=== PATIENT | female | born 1965 ===

== ENCOUNTER 2017-03-24 22:35 | Emergency (ER) | payer OTHER ==
[2017-03-25] MEDS ORDERED: Sodium Chloride 0.9% 1,000 ML IV STA (00:12)
[2017-03-25 00:25] LABS: RBC URINE 2 /hpf (0-3); URINE BILIRUBIN NEGATIVE (NEGATIVE); URINE BLOOD NEGATIVE (NEGATIVE); URINE COLOR YELLOW (YELLOW); URINE GLUCOSE (UA) NEG (Normal); URINE KETONE NEGATIVE (NEGATIVE); URINE LEUKOCYTE ESTERASE TRACE Leu/uL (Negative); URINE PROTEIN NEGATIVE (NEGATIVE); URINE UROBILINOGEN 0.2-1.0 mg/dL (0.2-1.0); WBC URINE 4 /hpf (0-5)
[2017-03-25 00:53] LABS: BASO % 0.4 % (0.0-2.0); EOS % 0.3 % (0.0-4.0); HEMATOCRIT 38.4 % (34.0-47.0); LYMPH # 0.4 K/uL (1.0-4.3); LYMPH % 4.2 % (20.0-40.0); MEAN CORPUSCULAR HEMOGLOBIN 30.6 pg (27.0-31.0); MEAN CORPUSCULAR HGB CONC 33.6 g/dL (33.0-37.0); MEAN PLATELET VOLUME 9.3 fl (7.2-11.7); MONO # 0.1 K/uL (0.0-0.8); MONO % 0.7 % (0.0-10.0); NEUT # 9.8 K/uL (1.8-7.0); NEUT % 94.4 % (50.0-75.0); PLATELET COUNT 255 K/uL (130-400); RED CELL DISTRIBUTION WIDTH 13.2 % (11.5-14.5); WHITE BLOOD COUNT 10.3 K/uL (4.8-10.8)
--- NOTE | 2017-03-25 00:54 | ED PDOC ---
HPI: Female Pain Time Seen by Provider: 03/24/17 23:38 Chief Complaint (Nursing): Abdominal Pain Chief Complaint (Provider): Urinary Symptoms History Per: Patient History/Exam Limitations: no limitations Current Symptoms Are (Timing): Still Present Quality Of Discomfort: "Pain" Associated Symptoms: Urinary Symptoms Additional Complaint(s): 51 year old female presents to ED with complaints of urinary problems and has no past medical history. (+) chills, left sided back pain, suprapubic pain, body aches, foul smelling urine, nausea, diarrhea, and headaches. (-) vomiting. Patient denies taking any medications but notes that she had similar problems x6 months ago and was prescribed a course of antibiotics that resolved her symptoms. Of note, patient is employed at [employer] at [place]. Confirms that she has an appointment with her PCP x2 days from now. PCP: Dr. Shields Past Medical History Reviewed: Historical Data, Nursing Documentation, Vital Signs Vital Signs: Last Vital Signs Temp 98.8 F 03/24/17 22:50 Pulse 78 03/24/17 22:50 Resp 18 03/24/17 22:50 BP 128/59 L 03/24/17 22:50 Pulse Ox 99 03/24/17 22:50 - Medical History PMH: No Chronic Diseases Denies: HIV, Chronic Kidney Disease - Surgical History Surgical History: No Surg Hx - Family History Family History: States: No Known Family Hx - Living Arrangements Living Arrangements: With Family - Home Medications Home Medications: Ambulatory Orders Medication Instructions Recorded Fluticasone Nasal [Flonase] 1 spr ERIKA Q12 PRN 05/07/16 Losartan/Hydrochlorothiazide 1 tab PO DAILY 05/07/16 [Losartan-Hctz 50-12.5 mg Tab] Amoxicillin/Clavulanate [Augmentin 1 tab PO Q12 #20 tab 05/09/16 875 MG-125 MG] Clindamycin [Cleocin] 300 mg PO Q8 #9 cap 05/09/16 Ibuprofen [Motrin Tab] 600 mg PO Q6 PRN #0 tab 05/09/16 Lactobacillus Acidophilus [Bacid 1 cap PO BID #20 cap 05/09/16 Acidophilus] - Allergies Allergies/Adverse Reactions: Allergies Allergy/AdvReac Type Severity Reaction Status Date / Time No Known Allergies Allergy Verified 05/06/16 17:07 Review of Systems ROS Statement: Except As Marked, All Systems Reviewed And Found Negative Constitutional: Positive for: Fever, Other ((+) body aches) Gastrointestinal: Positive for: Nausea, Diarrhea. Negative for: Vomiting Genitourinary Female: Positive for: Other ((+) foul smelling order) Musculoskeletal: Positive for: Back Pain Neurological: Positive for: Headache Physical Exam - Reviewed Nursing Documentation Reviewed: Yes Vital Signs Reviewed: Yes - Physical Exam Appears: Positive for: Uncomfortable Skin: Positive for: Normal Color, Warm, Dry ENT: Positive for: Normal ENT Inspection Neck: Positive for: Normal, Painless ROM, Supple Cardiovascular/Chest: Positive for: Regular Rate, Rhythm. Negative for: Murmur Respiratory: Positive for: Normal Breath Sounds. Negative for: Respiratory Distress Gastrointestinal/Abdominal: Positive for: Soft, Tenderness ((+) suprapubic tenderness. (-) epigastric or Right upper quadrant Tenderness) Back: Positive for: L CVA Tenderness Extremity: Positive for: Normal ROM Neurologic/Psych: Positive for: Alert, Oriented. Negative for: Motor/Sensory Deficits - Laboratory Results Result Diagrams: 03/25/17 00:40 03/25/17 00:40 - ECG O2 Sat by Pulse Oximetry: 99 (RA) Pulse Ox Interpretation: Normal Medical Decision Making Medical Decision Makin Initial impression: UTI DDx: pyelonephritis, renal stones, enterocolitis Initial plan: * CT A/P * Labs * UDip * NS IV * Toradol 30mg IVP * Zofran Inj 4mg IV * BCx * UCx * UA * Re-eval 0153 CT FINDINGS: Lower thorax: There is minimal bibasilar atelectasis. ABDOMEN: Liver: The liver is within normal limits for this noncontrast study. Gallbladder and bile ducts: The gallbladder is mildly distended. No calcified stones. No ductal dilation. Pancreas: Unremarkable. No ductal dilation. Spleen: Unremarkable. No splenomegaly. Adrenals: Unremarkable. No mass. Kidneys and ureters: Unremarkable. No obstructing stones. No hydronephrosis. There are benign phleboliths in the pelvis. Stomach and bowel: Unremarkable. No obstruction. No mucosal thickening. Appendix: No findings to suggest acute appendicitis. Normal appendix. PELVIS: Bladder: Unremarkable. No stones. Reproductive: Unremarkable as visualized. ABDOMEN and PELVIS: Intraperitoneal space: Unremarkable. No free air. No significant fluid collection. Bones/joints: No acute fracture. No dislocation. Soft tissues: Unremarkable. Vasculature: Unremarkable. No abdominal aortic aneurysm. Lymph nodes: Unremarkable. No enlarged lymph nodes. IMPRESSION: Mildly distended gallbladder. Correlation with laboratory values is recommended. If clinically warranted RIGHT upper quadrant ultrasound could be obtained. No nephrolithiasis or obstructive uropathy. 0300 * Rocephin 1gm IVPB * Tylenol 650mg PO * Re-eval On February 2016, patient had US: (-) GALLSTONES Scribe Attestation: Documented by Abi Newell acting as a scribe for Ezequiel Huffman MD. Scribe Attestation: All medical record entries made by the Scribe were at my direction and personally dictated by me. I have reviewed the chart and agree that the record accurately reflects my personal performance of the history, physical exam, medical decision making, and the department course for this patient. I have also personally directed, reviewed, and agree with the discharge instructions and disposition. Disposition - Clinical Impression Clinical Impression: UTI (urinary tract infection), Diarrhea - Patient ED Disposition Is Patient to be Admitted: No Doctor Will See Patient In The: Office Counseled Patient/Family Regarding: Studies Performed, Diagnosis, Need For Followup - Disposition Referrals: Guerline Lopes [Other] Disposition: Routine/Home Disposition Time: 04:49 Condition: GOOD Additional Instructions: take your medications as instructed. Return for worsening. Follow up with your PCP in 2-3 days. Instructions: Urinary Tract Infection in Women (DC), Back Pain (ED) Forms: [employer] (Irish) Print Language: TAMAZIGHT
[2017-03-25 01:09] LABS: BLOOD UREA NITROGEN 17 mg/dl (7-17); CALCIUM 9.3 mg/dL (8.4-10.2); CARBON DIOXIDE 28 mmol/L (22-30); CHLORIDE 104 mmol/L (98-107); GFR AFRICAN-AMERICAN > 60; GLUCOSE,RANDOM 97 mg/dL (65-105); POTASSIUM 4.1 MMOL/L (3.6-5.0); SODIUM 143 mmol/l (132-148)
--- NOTE | 2017-03-25 01:54 | CT ---
EXAM: CT Abdomen and Pelvis Without Intravenous Contrast CLINICAL HISTORY: 51 years old, female; Pain; Abdominal pain; Generalized; Additional info: Left flank pain TECHNIQUE: Axial computed tomography images of the abdomen and pelvis without intravenous contrast. All CT scans at this facility use one or more dose reduction techniques, viz.: automated exposure control; ma/kV adjustment per patient size (including targeted exams where dose is matched to indication; i.e. head); or iterative reconstruction technique. COMPARISON: No relevant prior studies available. FINDINGS: Lower thorax: There is minimal bibasilar atelectasis. ABDOMEN: Liver: The liver is within normal limits for this noncontrast study. Gallbladder and bile ducts: The gallbladder is mildly distended. No calcified stones. No ductal dilation. Pancreas: Unremarkable. No ductal dilation. Spleen: Unremarkable. No splenomegaly. Adrenals: Unremarkable. No mass. Kidneys and ureters: Unremarkable. No obstructing stones. No hydronephrosis. There are benign phleboliths in the pelvis. Stomach and bowel: Unremarkable. No obstruction. No mucosal thickening. Appendix: No findings to suggest acute appendicitis. Normal appendix. PELVIS: Bladder: Unremarkable. No stones. Reproductive: Unremarkable as visualized. ABDOMEN and PELVIS: Intraperitoneal space: Unremarkable. No free air. No significant fluid collection. Bones/joints: No acute fracture. No dislocation. Soft tissues: Unremarkable. Vasculature: Unremarkable. No abdominal aortic aneurysm. Lymph nodes: Unremarkable. No enlarged lymph nodes. IMPRESSION: Mildly distended gallbladder. Correlation with laboratory values is recommended. If clinically warranted RIGHT upper quadrant ultrasound could be obtained. No nephrolithiasis or obstructive uropathy.
[2017-03-25 02:30] LABS: EOSINOPHIL 1 % (0-7); NEUTROPHIL 88 % (42-75); STOMATOCYTES MODERATE; TOTAL CELLS COUNTED 100
[2017-03-25 02:34] LABS: LARGE PLATELETS PRESENT
[2017-03-25] MEDS ORDERED: cefTRIAXone IV 1 gm in Dextros 50 ML IVPB ONE (03:38)
[2017-03-25 03:40] LABS: ALB/GLOB RATIO 1.2 (1.0-2.1); BILIRUBIN,TOTAL 0.3 mg/dl (0.2-1.3); TOTAL PROTEIN 7.5 G/DL (6.3-8.2)
[2017-03-25 05:09] VITALS: BP 122/68; PULSE 74; RESP 16; TEMP 98.3; O2SAT 98
== END 2017-03-25 05:10 | disposition home or self-care (01) ==
LOC: H.ER 22:35
DX: N39.0 Urinary tract infection, site not specified (principal); R51 Headache; R19.7 Diarrhea, unspecified
CPT/HCPCS: 74176; 80048; 80076; 81003; 83690; 85025; 87040; 87086; 96361; 96365; 96375; 99283; J0696; J1885; J2405; J7040

== ENCOUNTER 2017-05-04 17:45 | Emergency (ER) | payer BC ==
[2017-05-04 17:54] VITALS: RESP 16; TEMP 97.9; O2SAT 100
[2017-05-04] MEDS ORDERED: Sodium Chloride 0.9% 1,000 ML IV STA (18:43)
--- NOTE | 2017-05-04 18:57 | ED PDOC ---
HPI: General Adult Time Seen by Provider: 05/04/17 18:09 Chief Complaint (Nursing): Dizziness/Lightheaded History Per: Patient Additional Complaint(s): Pt. states earlier today at work at approximately 1200 today she developed a R sided gradual onset headache. Pt. states headache has progressively worsened and today at approximately 1630 she began to feel dizzy. Further states she has not taken her Losartan 25mg x 2 months as she believes her BP's have become normal. Denies head injury, fever, chest pain, palpitations, numbness, tingling , abdominal pain. Past Medical History Reviewed: Historical Data, Nursing Documentation, Vital Signs Vital Signs: Last Vital Signs Temp 97.9 F 05/04/17 17:52 Pulse 86 05/04/17 17:52 Resp 16 05/04/17 17:52 BP 146/108 H 05/04/17 17:52 Pulse Ox 100 05/04/17 18:59 - Medical History PMH: HTN Denies: HIV, Chronic Kidney Disease - Family History Family History: States: No Known Family Hx - Home Medications Home Medications: Ambulatory Orders Medication Instructions Recorded Fluticasone Nasal [Flonase] 1 spr EIRKA Q12 PRN 05/07/16 Losartan/Hydrochlorothiazide 1 tab PO DAILY 05/07/16 [Losartan-Hctz 50-12.5 mg Tab] Amoxicillin/Clavulanate [Augmentin 1 tab PO Q12 #20 tab 05/09/16 875 MG-125 MG] Clindamycin [Cleocin] 300 mg PO Q8 #9 cap 05/09/16 Ibuprofen [Motrin Tab] 600 mg PO Q6 PRN #0 tab 05/09/16 Lactobacillus Acidophilus [Bacid 1 cap PO BID #20 cap 05/09/16 Acidophilus] Ciprofloxacin HCl [Cipro] 500 mg PO BID #14 tablet 03/25/17 - Allergies Allergies/Adverse Reactions: Allergies Allergy/AdvReac Type Severity Reaction Status Date / Time No Known Allergies Allergy Verified 05/04/17 17:52 Review of Systems ROS Statement: Except As Marked, All Systems Reviewed And Found Negative Neurological: Positive for: Headache, Dizziness Physical Exam - Reviewed Nursing Documentation Reviewed: Yes Vital Signs Reviewed: Yes - Physical Exam Appears: Positive for: Well, Non-toxic, No Acute Distress Head Exam: Positive for: ATRAUMATIC, NORMAL INSPECTION, NORMOCEPHALIC Skin: Positive for: Normal Color, Warm. Negative for: Rash Eye Exam: Positive for: Normal appearance, EOMI, PERRL. Negative for: Nystagmus ENT: Positive for: Normal ENT Inspection Neck: Positive for: Normal, Painless ROM Cardiovascular/Chest: Positive for: Regular Rate, Rhythm Respiratory: Positive for: CNT, Normal Breath Sounds Gastrointestinal/Abdominal: Positive for: Normal Exam, Bowel Sounds, Soft. Negative for: Tenderness Back: Positive for: Normal Inspection Extremity: Positive for: Normal ROM Neurologic/Psych: Positive for: Alert, Oriented, Other (equal electronics warfare technician strength b/l) . Negative for: Aphasia, Facial Droop - ECG ECG: Positive for: Interpreted By Me ECG Rhythm: Positive for: Sinus Rhythm. Negative for: ST/T Changes Rate: 74 O2 Sat by Pulse Oximetry: 100 - Progress ED Course And Treament: Labs ordered. Losartan 25mg PO ordered. CT head w/o contrast ordered. Disposition - Clinical Impression Clinical Impression: Hypertension - Patient ED Disposition Is Patient to be Admitted: Transfer of Care (Signed out to Fallon PÉREZ pending results and final disposition.) - Disposition Disposition Time: 20:00 Condition: STABLE Forms: [employer] (Romansh)
[2017-05-04 20:11] VITALS: PULSE 80
--- NOTE | 2017-05-04 20:47 | ED PDOC ---
- Laboratory Results Result Diagrams: 05/04/17 23:54 05/04/17 23:54 - ECG O2 Sat by Pulse Oximetry: 100 Medical Decision Making Medical Decision Making: Case endorsed to leader writer from [facility] [place] at [address] scan and re- eval CT IMPRESSION: 1. No acute intracranial finding. 2. Opacification and expansile change of a left ethmoid air cell. This was also reported on 01/28/2017 (images not available for review.) Repeat BP: 123/76 Pt doing well on re-eval, no complaints of pain, dizziness Pt given refill of RX and instructed on importance of taking medication as directed Disposition - Clinical Impression Clinical Impression: Hypertension - POA Present On Arrival: None - Disposition Disposition: Routine/Home Disposition Time: 00:34 Condition: STABLE Forms: [employer] (Tamazight)
[2017-05-04 23:58] LABS: BASO # 0.1 K/uL (0.0-0.2); BASO % 0.9 % (0.0-2.0); EOS # 0.1 K/uL (0.0-0.7); EOS % 1.3 % (0.0-4.0); HEMATOCRIT 41.3 % (34.0-47.0); LYMPH # 1.7 K/uL (1.0-4.3); LYMPH % 25.2 % (20.0-40.0); MEAN CELL VOLUME 93.8 fl (81.0-99.0); MEAN CORPUSCULAR HEMOGLOBIN 30.6 pg (27.0-31.0); MEAN CORPUSCULAR HGB CONC 32.7 g/dL (33.0-37.0); MEAN PLATELET VOLUME 9.9 fl (7.2-11.7); MONO # 0.5 K/uL (0.0-0.8); MONO % 6.9 % (0.0-10.0); NEUT # 4.4 K/uL (1.8-7.0); NEUT % 65.7 % (50.0-75.0); RED CELL DISTRIBUTION WIDTH 13.9 % (11.5-14.5); WHITE BLOOD COUNT 6.7 K/uL (4.8-10.8)
[2017-05-05 00:05] LABS: ALKALINE PHOSPHATASE 113 U/L (38-126); ALT/SGPT 32 U/L (9-52); AST/SGOT 27 U/L (14-36); BILIRUBIN,TOTAL 0.3 mg/dl (0.2-1.3); BLOOD UREA NITROGEN 19 mg/dl (7-17); CALCIUM 9.4 mg/dL (8.4-10.2); CARBON DIOXIDE 30 mmol/L (22-30); CHLORIDE 102 mmol/L (98-107); GFR AFRICAN-AMERICAN > 60; GLUCOSE,RANDOM 88 mg/dL (65-105); POTASSIUM 3.9 MMOL/L (3.6-5.0); SODIUM 143 mmol/l (132-148); TOTAL PROTEIN 8.7 G/DL (6.3-8.2)
[2017-05-05 00:06] LABS: ALB/GLOB RATIO 1.2 (1.0-2.1)
[2017-05-05 00:07] VITALS: BP 123/76
--- NOTE | 2017-05-05 08:32 | CT ---
PROCEDURE: CT HEAD WITHOUT CONTRAST. HISTORY: dizziness, headache COMPARISON: Head CT 05/06/2016. TECHNIQUE: Axial computed tomography images were obtained through the head/brain without intravenous contrast. Radiation dose: Total exam DLP = 858.72 mGy-cm. This CT exam was performed using one or more of the following dose reduction techniques: Automated exposure control, adjustment of the mA and/or kV according to patient size, and/or use of iterative reconstruction technique. FINDINGS: HEMORRHAGE: No intracranial hemorrhage. BRAIN: Normal curtis-white matter differentiation and density are appreciated throughout the cerebrum and cerebellum with the brainstem appearing unremarkable as well. There is no mass effect. There is no suspicious extra-axial fluid collection in the midline brain anatomy appears diffusely unremarkable. VENTRICLES: Unremarkable. No hydrocephalus. CALVARIUM: Unremarkable. PARANASAL SINUSES: A mucocele expands an anterior left ethmoid air cell, stable in the interval. MASTOID AIR CELLS: Unremarkable as visualized. No inflammatory changes. OTHER FINDINGS: None. IMPRESSION: Stable unremarkable unenhanced CT of the Head. Incidental stable mucocele left ethmoid air cell anteriorly.
--- NOTE | 2017-05-05 10:58 | CARD ---
APPROVED REPORT EKG Measurement Heart [id number] <Conclusion> Normal sinus rhythm Moderate voltage criteria for LVH, may be normal variant Borderline ECG
--- NOTE | 2017-05-05 11:36 | RAD ---
HISTORY: clearance COMPARISON: Chest radiographs 05/07/2016. FINDINGS: LUNGS: No active pulmonary disease. PLEURA: No significant pleural effusion identified, no pneumothorax apparent. CARDIOVASCULAR: Normal. OSSEOUS STRUCTURES: No significant abnormalities. VISUALIZED UPPER ABDOMEN: Normal. OTHER FINDINGS: None. IMPRESSION: No interval acute cardiopulmonary disease appreciated.
== END 2017-05-05 01:25 | disposition home or self-care (01) ==
LOC: H.ER 17:45
DX: I10 Essential (primary) hypertension (principal)
CPT/HCPCS: 70450; 71010; 80053; 84484; 85025; 93005; 96374; 99283; J2765